=== PATIENT | male | born 1990 | race American Indian/Alaskan Native ===

== ENCOUNTER 2018-12-15 04:39 | Emergency (ER) | payer OTHER ==
[2018-12-15 05:31] LABS: Basophils % (Auto) 0.2 % (0.0-1.8); Hematocrit 43.3 % (35.5-45.6); Hemoglobin 14.2 gm/dl (11.8-15.2); Lymphocytes % (Auto) 7.9 % (13.4-35.0); Mean Corpuscular HGB Conc 33 % (32-34); Mean Corpuscular Volume 90 fl (84-94); Monocytes # (Auto) 0.4 K/mm3 (0.0-0.8); Monocytes % (Auto) 3.6 % (0.0-7.3); Platelet Count 201 K/mm3 (140-440); Red Blood Count 4.82 M/mm3 (3.65-5.03); Red Cell Distribution Width 14.1 % (13.2-15.2)
[2018-12-15 05:45] LABS: BUN/Creatinine Ratio 9; Blood Urea Nitrogen 10 mg/dL (9-20); Calcium 9.4 mg/dL (8.4-10.2); Hemolysis Index 12
[2018-12-15 06:04] LABS: Bilirubin,Urine NEG (Negative); Blood,Urine NEG (Negative); Color,Urine Yellow (Yellow); Hyaline Casts,Urine 22 /LPF; Urobilinogen,Urine < 2.0 mg/dL (<2.0)
[2018-12-15 06:09] LABS: Benzodiazepines Screen,Urine PRESUMPTIVE NEGATIVE; Cocaine Screen,Urine PRESUMPTIVE NEGATIVE; Methadone Screen,Urine PRESUMPTIVE NEGATIVE; Opiate Screen,Urine PRESUMPTIVE NEGATIVE
[2018-12-15 06:26] LABS: Amphetamine Screen,Urine PRESUMPTIVE POSITIVE; Cannabinoid Screen,Urine PRESUMPTIVE POSITIVE
--- NOTE | 2018-12-15 07:11 | Emergency Department Report ---
ED Psych HPI - General Chief Complaint: Psych Stated Complaint: YUNIOR EVJOSE Time Seen by Provider: 12/15/18 07:04 Source: patient Mode of arrival: Ambulatory - History of Present Illness Initial Comments: Patient is 28 years old male with no significant past medical or psychiatric hi story. Patient presented to the ER stating that he is paranoid and he feel that people are after him to kill him. Patient is very anxious and kept looking right and left during my assessment. Patient denied any suicidal or homicidal ideation. He denied any visual or detail this admission. Patient drugs test is positive for methamphetamine and marijuana MD Complaint: altered mental status -: Last night Associated Psychiatric Symptoms: racing thoughts, delusions Quality: constant Context: recent drug abuse Associated Symptoms: denies other symptoms - Related Data Home Medications Medication Instructions Recorded Confirmed Last Taken Unobtainable 12/15/18 12/15/18 Unknown Allergies Allergy/AdvReac Type Severity Reaction Status Date / Time No Known Allergies Allergy Unverified 12/15/18 04:54 ED Review of Systems ROS: Stated complaint: MH EVAL Other details as noted in HPI Comment: All other systems reviewed and negative Constitutional: denies: chills, fever Respiratory: denies: cough, orthopnea, shortness of breath, SOB with exertion, SOB at rest, wheezing Cardiovascular: denies: chest pain, palpitations Gastrointestinal: denies: abdominal pain, nausea, vomiting, diarrhea, constipation, hematemesis, melena, hematochezia Musculoskeletal: denies: back pain Skin: denies: lesions Neurological: denies: headache, weakness, numbness, paresthesias, confusion, abnormal gait Psychiatric: denies: depression, auditory hallucinations, visual hallucinations, homicidal thoughts, suicidal thoughts ED Past Medical Hx - Past Medical History Previous Medical History?: Yes Hx Hypertension: Yes - Surgical History Past Surgical History?: No Additional Surgical History: shoulder - Social History Smoking Status: Current Every Day Smoker Substance Use Type: Alcohol, Other - Medications Home Medications: Home Medications Medication Instructions Recorded Confirmed Last Taken Type Unobtainable 12/15/18 12/15/18 Unknown History ED Physical Exam - General Limitations: No Limitations General appearance: alert, in no apparent distress - Head Head exam: Present: atraumatic, normocephalic, normal inspection - Eye Eye exam: Present: normal appearance, PERRL - ENT ENT exam: Present: normal exam, normal orophraynx, mucous membranes moist - Neck Neck exam: Present: normal inspection, full ROM. Absent: tenderness, meningismus, lymphadenopathy, thyromegaly - Respiratory Respiratory exam: Present: normal lung sounds bilaterally - Cardiovascular Cardiovascular Exam: Present: regular rate, normal rhythm, normal heart sounds - GI/Abdominal GI/Abdominal exam: Present: soft, normal bowel sounds. Absent: distended, tenderness, guarding, rebound, rigid - Extremities Exam Extremities exam: Present: normal inspection, full ROM, normal capillary refill - Back Exam Back exam: Present: normal inspection, full ROM. Absent: CVA tenderness (R), CVA tenderness (L), muscle spasm, paraspinal tenderness, vertebral tenderness - Neurological Exam Neurological exam: Present: alert, oriented X3, CN II-XII intact, normal gait - Psychiatric Psychiatric exam: Present: agitated, anxious. Absent: depressed, flat affect, manic, homicidal ideation, suicidal ideation - Skin Skin exam: Present: warm, intact, normal color ED Course Vital Signs 12/15/18 12/15/18 04:49 06:07 Temperature 100.4 F H 98.8 F Pulse Rate 100 H 72 Respiratory 18 18 Rate Blood Pressure 164/102 Blood Pressure 146/89 [Left] O2 Sat by Pulse 100 100 Oximetry ED Medical Decision Making - Lab Data Result diagrams: 12/15/18 05:04 12/15/18 05:04 Critical care attestation.: If time is entered above; I have spent that time in minutes in the direct care of this critically ill patient, excluding procedure time. ED Disposition Clinical Impression: Acute psychosis, Methamphetamine abuse, Paranoid behavior Disposition: [id number]/TX-[id number] PSY HOSP/PSY UNIT Is pt being admited?: No Condition: Stable
[2018-12-15] MEDS ORDERED: GEODON IM ONE ×2 (09:50→10:11)
[2018-12-15] MEDS ORDERED: WATER FOR INJ Sterile (PF) 10 ML ONE (09:51)
--- NOTE | 2018-12-15 11:02 | Consultation ---
History of Present Illness - Reason for Consult Consult date: 12/15/18 Reason for consult: Mental Health Evaluation Requesting physician: JAMEE BAEZ - Chief Complaint Chief complaint: "I someone is after me" - History of Present Psychiatric Illness 28 y.o. AA male who presented to the ER for acute psychosis. Today the patient is cooperative, but anxious during the assessment. He stated that he took an "ecstasy pi;" and smoked marijuana yesterday at a libertarian. He stated that he feel like the [facility] is after him, but don't know why. Throughout the interview the patient was hyper verbal with loose associations. He had to be redirected several times to keep him on topic. He is adamant that he cannot sleep because he do not trust the staff. He denies SI/HI's and VH's. He stated that he is "hearing a lot at this time." He denies a poor appetite, but acknowledged erratic sleep. He stated that he smoke marijuana often, but denies alcohol consumption (etoh). The patient's blood alcohol serum was 0.03. Medications and Allergies Allergies Allergy/AdvReac Type Severity Reaction Status Date / Time No Known Allergies Allergy Verified 12/15/18 08:46 Home Medications Medication Instructions Recorded Confirmed Last Taken Type Unobtainable 12/15/18 12/15/18 Unknown History Past psychiatric history - Past Medical History Past Medical History: No medical history Past Surgical History: No surgical history - past Psychiatric treatment and history psychiatric treatment history: Hx of substance abuse. Denies a psy hx. - Social History Social history: lives with family Mental Status Exam - Vital signs Last Vital Signs Temp 99.3 F 12/15/18 08:29 Pulse 58 L 12/15/18 08:29 Resp 18 12/15/18 08:29 BP 162/81 12/15/18 08:29 Pulse Ox 100 12/15/18 08:29 - Exam Narrative exam: MSE: Appearance: cooperative Behavior: regular eye contact Speech: hyper verbal Mood: "scared and anxious" Affect: congruent to mood Thought Process: tangential Thought Content: denies SI/HI's and VH's, paranoid, delusional Motor Activity: sitting up in bed Cognition: A/O x 3 Insight: poor Judgment: poor Results Result Diagrams: 12/15/18 05:04 12/15/18 05:04 Abnormal lab results 12/15/18 12/15/18 12/15/18 Range/Units 05:04 05:04 05:04 WBC (4.5-11.0) K/mm3 Lymph % (Auto) (13.4-35.0) % Lymph # (1.2-5.4) K/mm3 Seg Neutrophils % (40.0-70.0) % Seg Neutrophils # (1.8-7.7) K/mm3 Glucose 104 H (75-100) mg/dL Salicylates < 0.3 L (2.8-20.0) mg/dL Acetaminophen < 5.0 L (10.0-30.0) ug/mL 12/15/18 Range/Units 05:04 WBC 12.5 H (4.5-11.0) K/mm3 Lymph % (Auto) 7.9 L (13.4-35.0) % Lymph # 1.0 L (1.2-5.4) K/mm3 Seg Neutrophils % 88.3 H (40.0-70.0) % Seg Neutrophils # 11.0 H (1.8-7.7) K/mm3 Glucose (75-100) mg/dL Salicylates (2.8-20.0) mg/dL Acetaminophen (10.0-30.0) ug/mL All other labs normal. Assessment and Plan Assessment and plan: Impression: Unspecified Psychosis. Unspecified Anxiety DO. Substance Use DO (amp hetamines). Cannabis Use DO. The patient is cooperative, but anxious during the assessment. Blood Alcohol Serum 0.03. DDx: Substance Induced Psychosis recommendation/Plan: Continue 1013 and start Zyorexa 2.5 mg PO HS for psychosis and Buspar 7.5 mg PO BID for anxiety. Attempted to discuss possible metabolic side effects of Zyprexa with the patient. Dipso: The patient was referred to inpatient psy services. Will staff with Dr Sal Mckee.
[2018-12-15] MEDS: BUSPAR PO SCH ×2 (13:42→22:20)
--- NOTE | 2018-12-16 08:20 | Progress Note ---
Subjective - Reason for Consult Consult date: 12/16/18 Reason for consult: Psychiatry Follow-up - Chief Complaint Chief complaint: "I feel better" 28 y.o. AA male who presented to the ER for acute psychosis. Today the patient is calm and cooperative during the assessment. He stated that he feel much better. The patient isn't in the seclusion room as he was yesterday. He stated that he need to stop taking ecstasy pills. He stated that he "lost it before" when combining ecstasy and marijuana. He denies SI/HI's and AVH's. He denies any side effects of his medications. Mental Status Exam - Vital signs Last Vital Signs Temp 97.3 F L 12/16/18 00:00 Pulse 59 L 12/16/18 00:00 Resp 18 12/16/18 00:00 BP 133/97 12/16/18 00:00 Pulse Ox 97 12/16/18 00:00 - Exam Narrative exam: MSE: Appearance: calm, cooperative Behavior: regular eye contact Speech: regular rate and tone Mood: "better" Affect: congruent to mood Thought Process: more organized Thought Content: denies SI/HI's and AVH''s Motor Activity: sitting up in bed Cognition: A/O x 3 Insight: fair Judgment: fair Assessment and Plan Impression: Unspecified Psychosis. Unspecified Anxiety DO. Substance Use DO (amphetamines). Cannabis Use DO. The patient is calm and cooperative during the assessment. Blood Alcohol Serum 0.03. DDx: Substance Induced Psychosis recommendation/Plan: Reevaluate the patient's 1013 in 24 hours. Continue Zyorexa 2.5 mg PO HS for psychosis and Buspar 7.5 mg PO BID for anxiety. Discussed possible metabolic side effects of Zyprexa with the patient. Dipso: If the patient's 1013 is rescinded in 24 hours, he can follow up wit [facility] for outpatient psy/rehab services. Will staff with Dr Sal Mckee.
[2018-12-16] MEDS: BUSPAR PO SCH ×2 (10:59→22:26)
[2018-12-17] MEDS: BUSPAR PO SCH (10:38)
--- NOTE | 2018-12-17 15:25 | Progress Note ---
Subjective - Reason for Consult Consult date: 12/17/18 Reason for consult: Psychiatry Follow-up - Chief Complaint Chief complaint: "Hello" 28 y.o. AA male who presented to the ER for acute psychosis. Today the patient is calm and cooperative during the assessment. He stated that he will not use "drugs" again. He stated that he is willing to seek help for his substance abuse when discharged. He denies SI/HI's and AVH's. f Mental Status Exam - Vital signs Last Vital Signs Temp 98.1 F 12/17/18 07:23 Pulse 52 L 12/17/18 07:23 Resp 20 12/17/18 07:23 BP 128/87 12/17/18 07:23 Pulse Ox 100 12/17/18 07:23 - Exam Narrative exam: MSE: Appearance: calm, cooperative Behavior: regular eye contact Speech: regular rate and tone Mood: "okay" Affect: congruent to mood Thought Process: linear Thought Content: denies SI/HI's and AVH''s Motor Activity: sitting up in bed Cognition: A/O x 3 Insight: appropriate Judgment: appropriate Assessment and Plan Impression: Unspecified Psychosis. Unspecified Anxiety DO. Substance Use DO (amphetamines). Cannabis Use DO. The patient is calm and cooperative during the assessment. The patient's psychosis has resolved. DDx: Substance Induced Psychosis recommendation/Plan: Rescind 1013. Discussed the importance to abstain from recreational drug use, he verbalized understanding. Dispo: The patient can follow up with [facility] for outpatient psy/rehab services. Will staff with Dr Sal Mckee.
[2018-12-17 15:34] VITALS: BP 112/47
== END 2018-12-17 17:36 | disposition home or self-care (01) ==
LOC: EEVIPCON 04:39 → ED 04:39
DX: F23 Brief psychotic disorder (principal); F41.9 Anxiety disorder, unspecified; F15.10 Other stimulant abuse, uncomplicated; F17.200 Nicotine dependence, unspecified, uncomplicated; I10 Essential (primary) hypertension; F12.10 Cannabis abuse, uncomplicated; Y90.5 Blood alcohol level of 100-119 mg/100 ml
CPT/HCPCS: 36415; 80048; 80307; 81001; 85025; 96372; 99284; G0480; J3486; 80320